=== PATIENT | female | born 1970 | race Hispanic/Latino ===

== ENCOUNTER → 2018-04-20 14:58 | Outpatient (CLI) | payer OTHER, SELFPAY ==
--- NOTE | 2018-04-20 | DI.MRI.S_ITS ---
PROCEDURE: MR KNEE RT WO CON INDICATIONS: ACUTE PAIN OF RIGHT KNEE TECHNIQUE: Noncontrast sagittal PD fast spin echo and T2 fast spin echo with fat saturation, sagittal 3-D FLASH with fat saturation; coronal T1 spin echo and PD fast spin echo with fat saturation, and axial PD fast spin echo with fat saturation through the knee. COMPARISON: None. FINDINGS: Image quality: Excellent. Menisci: Linear oblique high T2 signal intensity traverses the posterior horn medial meniscus, demonstrating inferior articular surface extension. Lateral meniscus is intact. Cruciate ligaments: The anterior and posterior cruciate ligaments appear intact. Medial structures: The medial collateral ligament appears intact. The posterior oblique ligament, semimembranosus tendon insertions, oblique popliteal ligament, and meniscocapsular junction appear intact. Visualized portions of the pes anserinus tendons appear normal. There is split type tearing of the semimembranosus at the tibial insertion site. No abnormal bursal fluid. Lateral structures: The lateral collateral ligament, long and short heads of the biceps femoris tendon appear intact. The popliteus tendon appears normal; the popliteofibular ligament appears intact. The posterosuperior and anteroinferior popliteomeniscal fascicles appear intact. The arcuate and fabellofibular ligaments appear intact, on either side of the lateral inferior geniculate artery. Iliotibial band appears normal. Anterior structures: The quadriceps and patellar tendons appear intact. Patellar alignment is normal. No femoral trochlear dysplasia or ventral trochlear prominence. No edema in the infrapatellar fat pad. Mild prepatellar subcutaneous ill-defined T2 signal elevation. Bones and cartilage: No bone marrow contusions or fractures. Mild diffuse articular cartilage loss overlies the weightbearing aspects of the medial femoral condyle and medial tibial plateau. Joint space: There is a small knee joint effusion and a small Fraga's cyst. Normal appearing synovial plicae are incidentally noted. IMPRESSION: 1. Posterior horn medial meniscal tear. 2. Medial compartment articular cartilage loss. 3. Small knee joint effusion and Fraga's cyst. Dictated by: Ramses Schwartz M.D. on 04/20/2018 at 16:23 Approved by: Ramses Schwartz M.D. on 04/20/2018 at 16:25
== END ==
PROVIDERS: PCP Physician Assistant Medical; Visit Provider Orthopaedic Surgery
DX: S83.241A Other tear of medial meniscus, current injury, right knee, initial encounter (principal); M25.461 Effusion, right knee; M71.21 Synovial cyst of popliteal space [Baker], right knee
CPT/HCPCS: 73721

== ENCOUNTER → 2020-03-12 16:28 | Outpatient (CLI) | payer OTHER, SELFPAY ==
--- NOTE | 2020-03-12 | DI.RAD.S_ITS ---
PROCEDURE: XR WRIST RT MIN 3V INDICATIONS: rule out right wrist fracture TECHNIQUE: 4 views of the wrist were acquired. COMPARISON: None. FINDINGS: Bones: No fractures or dislocations. No suspicious bony lesions. Scaphoid view: No trauma found. Soft tissues: No suspicious soft tissue calcifications. IMPRESSION: No trauma found over the wrist. If an occult fracture is clinically suspected delayed plain films for advanced imaging such as CT or MR may become necessary. Dictated by: Kalpesh Farley M.D. on 03/12/2020 at 16:57 Approved by: Kalpesh Farley M.D. on 03/12/2020 at 16:59
== END ==
PROVIDERS: PCP Physician Assistant Medical; Referring Provider Chiropractor; Visit Provider Chiropractor
DX: S62.91XD Unspecified fracture of right hand, subsequent encounter for fracture with routine healing (principal)
CPT/HCPCS: 73110

== ENCOUNTER 2020-03-12 17:03 | Emergency (ER) | payer OTHER, SELFPAY ==
[2020-03-12 17:26] VITALS: BP 148/74; PULSE 80; RESP 16; TEMP 36.4; O2SAT 100; BMI 27.3
--- NOTE | 2020-03-12 18:58 | ED_ITS ---
HPI - Extremity Injury (Upper) General Chief Complaint: Extremity Injury, Upper Stated Complaint: FALL RIGHT ARM INJURY Time Seen by Provider: 03/12/20 17:58 Source: patient Mode of arrival: Ambulatory History of Present Illness HPI narrative: 49-year-old woman with a history of diabetes, asthma and depression presents after falling at home yesterday while trying to get out of the bath tub. She landed for the most part on her right forearm and has a large contusion just proximal to the wrist in 1 just distal to the elbow and has a small contusion to the medial aspect of the left knee as well. She was able to get up by herself noticed that she was more sore today than yesterday, after the fall. She was seen by her chiropractor today and had significant tenderness in the distal forearm with vibratory testing to look for fractures. She was sent for x-rays and then it was suggested that she follow-up in the emergency department to see what x-rays revealed. Related Data Home Medications Medication Instructions Recorded Confirmed canagliflozin [Invokana] 300 mg #0 06/25/16 fluticasone propionate [Flovent 50 mcg INH BID #1 pkg 06/25/16 Diskus] metformin [Fortamet] 1,000 mg PO AMCC #0 tab 06/25/16 sertraline [Zoloft] 50 mg PO QDAY #30 tab 06/25/16 Previous Rx's Medication Instructions Recorded sulfamethoxazole-trimethoprim 1 tab PO BID #10 tab 02/08/17 Allergies Allergy/AdvReac Type Severity Reaction Status Date / Time No Known Drug Allergies Allergy Verified 03/12/20 17:33 Review of Systems Review of Systems Narrative: Pertinent positive and negative findings as per HPI Remainder of review of systems is otherwise unremarkable for Constitutional: Fevers, chills, weakness ENT: No sore throat, neck pain, ear pain CV: Chest pain, palpitations, dyspnea on exertion Respiratory: Cough, wheeze, dyspnea GI: Nausea, vomiting, diarrhea, change in bowel habits, black or bloody stools : Dysuria, hematuria, flank pain MS: Muscle weakness, numbness, joint swelling or warmth Patient History Medical History (Updated 03/12/20 @ 19:01 by Loren Arora MD) Asthma (Acute) Depression (Acute) Diabetes (Acute) Surgical History (Updated 02/09/18 @ 06:03 by Conversion Provider) Status post appendectomy Status post delivery (01/21/86) Status post delivery (09/21/87) Status post delivery (09/10/89) Status post laparoscopic cholecystectomy Status post tubal ligation Social History Smoking Status: Never smoker Smoking Status: Never smoker alcohol intake frequency: holidays/special occasions only Substance Use Type: does not use Exam Narrative Exam Narrative: General: Alert appropriate in no acute distress Respiratory: Able to speak in full sentences, no obvious respiratory distress Skin: No obvious rashes, warm and dry Neurologic: Grossly intact no obvious asymmetries or abnormalities Psych, appropriate insight and affect, cooperative Extremity: Contusion just distal to the elbow on the left. Moderate hematoma just proximal to the wrist on the ulnar side. Tender to palpation however full range of motion at the risk and completely neurovascularly intact distally. She also has a small contusion to the medial aspect of her left knee and is neurovascularly intact distally to that Initial Vital Signs Initial Vital Signs: Vital Signs Temperature 97.6 F 03/12/20 17:26 Pulse Rate 80 03/12/20 17:26 Respiratory Rate 16 03/12/20 17:26 Blood Pressure 148/74 H 03/12/20 17:26 Pulse Oximetry 100 03/12/20 17:26 Procedures Orthopedic Splinting/Casting Injury #1: Side: right Upper Extremity Injury Location: wrist Upper Extremity Immobilizer: Philipp wrap Post splinting neuro exam: intact Post splinting vascular exam: intact Placed by: Provider Course Vital Signs Vital signs: Vital Signs - 8 hr 03/12/20 17:26 Temperature 97.6 F Pulse Rate 80 Respiratory Rate 16 Blood Pressure 148/74 H Pulse Oximetry 100 [facility] - Extremity Injury (Upper) Medical Records Attestation: I reviewed the patient's medical records. Imaging Data X-ray wrist: Radiologist's Impression: IMPRESSION: No trauma found over the wrist. If an occult fracture is clinically suspected delayed plain films for advanced imaging such as CT or MR may become necessary. Dictated by: Kalpesh Farley M.D. on 03/12/2020 at 16:57 MDM Narrative Medical decision making narrative: Contusion after fall yesterday. No fractures. Philipp wrap placed without complication. Patient is safe for home discharge Discharge Plan Departure Patient Disposition: Home Clinical Impression: Contusion of forearm Qualifiers: Encounter type: initial encounter Laterality: right Qualified Code(s): S50.11XA - Contusion of right forearm, initial encounter Instructions: DI for Contusion Activity Restrictions/Additional Instructions: Thank you for coming in today Your x-ray was read by the radiologist as not broken. Your bruise and contusion is still going to hurt. You may find that your actually worse tomorrow, it is common to her more 2 days after your initial injury. I have given you an Philipp wrap to provide a bit of stability around the area. Pl ease continue to use it as long as it is helpful. Using 400 mg of ibuprofen (2 [id number] pills) and 1 Tylenol every 6 hours can be very helpful in controlling pain. Please follow-up with your primary care physician It sounds like you got hussein and ended up with bumps and bruises only from your fall. Prescriptions: No Action fluticasone propionate [Flovent Diskus] 50 MCG blister with device 50 mcg INH BID Qty: 1 RF: 0 metformin [Fortamet] 1,000 MG tablet extended release 24hr 1,000 mg PO AMCC Qty: 0 RF: 0 canagliflozin [Invokana] 300 MG tablet 300 mg Qty: 0 RF: 0 sertraline [Zoloft] 50 MG tablet 50 mg PO QDAY Qty: 30 RF: 0 sulfamethoxazole-trimethoprim 800 MG/160 MG tablet 1 tab PO BID Qty: 10 RF: 0 Referrals: Maryann Terrazas PA-C [Primary Care Provider] -
--- NOTE | 2020-03-12 19:15 | PC.NURSE ---
bruising noted to right forearm and right elbow. CMS intact. Good ROM.
== END 2020-03-12 19:19 | disposition home or self-care (01) ==
PROVIDERS: Emergency Provider Emergency Medicine; PCP Physician Assistant Medical
DX: S50.11XA Contusion of right forearm, initial encounter (principal); W19.XXXA Unspecified fall, initial encounter
CPT/HCPCS: 73110; 99283